=== PATIENT | male | born 1985 | race Caucasian/White ===

== ENCOUNTER 2018-12-03 00:17 | Emergency (ER) | payer SELFPAY ==
[~2018-12-03] VITALS: Ht 190.5 cm; Wt 81.6 kg
[2018-12-03 00:20] VITALS: BP 134/76
[2018-12-03] MEDS ORDERED: LIDOCAINE WITH 8.4% SOD BICARB 3 ML DISP.SYRIN. INJ ONE (01:00)
[2018-12-03] MEDS ORDERED: HYDROcodone/APAP 5/325MG 1 TAB TABLET PO ONE (01:00)
[2018-12-03] MEDS ORDERED: TRANEXAMIC ACID 1,000 MG/10 ML VIAL. TOP ONE (01:00)
--- NOTE | 2018-12-03 01:39 | PHYS DOC ---
Past Medical History Past Medical History: No Pertinent History Past Surgical History: Other Additional Past Surgical Histo: 'EAR TUBES' Alcohol Use: None Drug Use: None Adult General Chief Complaint Chief Complaint: LACERATION/AVULSION HPI HPI Patient is a 33 year old male who presents with right thumb laceration, patient accidentally cut himself with a box, he is right-handed Review of Systems Review of Systems Constitutional: Denies fever or chills [] Musculoskeletal: Denies back pain or joint pain [] Integument: Reports right thumb laceration Neurologic: Denies headache, focal weakness or sensory changes [] All other systems were reviewed and found to be within normal limits, except as documented in this note. Current Medications Current Medications Current Medications Medications (Trade) Dose Ordered Sig/Anisa Start Time Stop Time Status Last Admin Dose Admin Acetaminophen/ Hydrocodone Bitart (Lortab 5/325) 1 tab 1X ONCE 12/03/18 01:00 12/03/18 01:01 DC 12/03/18 00:50 1 TAB Lidocaine/Sodium Bicarbonate (Buffered Lidocaine 1%) 9 ml 1X ONCE 12/03/18 01:00 12/03/18 01:01 DC 12/03/18 00:52 9 ML Tranexamic Acid (Cyklokapron) 1,000 mg 1X ONCE 12/03/18 01:00 12/03/18 01:01 DC 12/03/18 00:52 1,000 MG Allergies Allergies Allergies Coded Allergies Type Severity Reaction Last Updated Verified No Known Drug Allergies 12/03/18 No Physical Exam Physical Exam Constitutional: Well developed, well nourished, no acute distress, non-toxic appearance. [] Skin: Right medial thumb proximal and with a C-shaped laceration approximately 4 cm long, this no obvious tendon involvement. Patient able to flex and extend the thumb PIP joint and DIP joints. Adequate radius sensation to the thumb. +2 right radial pulse. Cap refill less than 2 seconds to the right fingers. Back: No tenderness, no CVA tenderness. [] Extremities: No tenderness, no cyanosis, no clubbing, ROM intact, no edema. [] Neurologic: Alert and oriented X 3, normal motor function, normal sensory function, no focal deficits noted. [] Psychologic: Affect normal, judgement normal, mood normal. [] Current Patient Data Vital Signs Vital Signs Date Time Temp Pulse Resp B/P (MAP) Pulse Ox O2 Delivery O2 Flow Rate FiO2 12/03/18 00:50 20 99 Room Air 12/03/18 00:20 98.6 78 134/76 (95) 98.6 EKG EKG [] Radiology/Procedures Radiology/Procedures Laceration/Wound Repair Wound Location: Right thumb Wound's Depth, Shape: C shape Wound Length (cm): approx. 4 cm Wound Explored: clean Irrigated w/ Saline (ccs): 500 Betadine Prep?: Y Anesthesia: 1% buffered lidocaine Volume Anesthetic (ccs): 7 mL Wound Repaired With: Vicryl 3.0 and 4.0 Suture Size/Type: 3 interrupted sutures were placed internally, 14 interrupted sutures were placed externally. Progress : Wound was covered with nonstick dressing Course & Med Decision Making Course & Med Decision Making Pertinent Labs and Imaging studies reviewed. (See chart for details) This is a 33-year-old male patient who presents to the ED today with right thumb laceration that was closed by me as noted in procedures. Wound care instructions and return precautions provided to patient. Tetanus up-to-date. Dragon Disclaimer Dragon Disclaimer This electronic medical record was generated, in whole or in part, using a voice recognition dictation system. Departure Departure Impression: Primary Impression: Laceration of right thumb Disposition: HOME, SELF-CARE Condition: STABLE Referrals: NO PCP (PCP) follow up with your doctor as needed Patient Instructions: Fingertip Laceration Additional Instructions: You have a laceration on the right thumb that was closed with dissolvable stitches, they will fall off and disappear on their own, keep the area clean and dry. You can shower and wash the area, do not soak it. Apply Neosporin to the area twice a day. Monitor the area for signs of infection including but not limited to increased redness, warmth, yellow drainage from the area and return to the ED see her doctor if they occur. Problem Qualifiers Primary Impression: Laceration of right thumb Encounter type: initial encounter Damage to nail status: without damage Foreign body presence: without foreign body Qualified Codes: S61.011A - Laceration without foreign body of right thumb without damage to nail, initial encounter DELLA ROSENBAUM APRN Dec 03, 2018 01:39
== END 2018-12-03 01:41 | disposition home or self-care (01) ==
LOC: ER 00:17
DX: S61.011A Laceration without foreign body of right thumb without damage to nail, initial encounter (principal); W26.8XXA Contact with other sharp object(s), not elsewhere classified, initial encounter; Y93.89 Activity, other specified; Y92.89 Other specified places as the place of occurrence of the external cause; Y99.8 Other external cause status
CPT/HCPCS: 12002; 99283